=== PATIENT | female | born 1995 ===

== ENCOUNTER 2021-01-20 10:48 | Inpatient (IN) | payer BC, OTHER ==
[~2021-01-20] VITALS: Ht 170.2 cm; Wt 79.5 kg
[2021-01-20] MEDS ORDERED: PRENATAL MVI (19:26)
[2021-01-20] MEDS ORDERED: NATURAL IRON65 MG (19:27)
[2021-01-20 19:35] VITALS: BP 136/65; PULSE 75; TEMP 98.4
--- NOTE | 2021-01-20 19:50 | NUR ---
1919 G1 at 39.1 weeks gestation to LDR5 with for induction of labor. Patient changed into gown, wedged left in bed. Patient reports good movement, denies CTX, LOF, or vaginal bleeding. EFMs explained and applied. FHR 130 bpm. At 193 and 194, late FHR deceleration noted. FHR down to 125 bpm lasting 2-3 minutes before a gradual, spontaneous return to baseline of 130 bpm. Patient repositioned to left side. 1944 INT placed in left hand with labs drawn from site. LR fluid bolus infusing.
[2021-01-20 20:05] VITALS: BP 129/73; PULSE 75
--- NOTE | 2021-01-20 20:05 | NUR ---
FHR category 1. SVE closed/thick/high, posterior. Cytotec placed - see emar.
[2021-01-20 20:28] LABS: BASO % 0.3 % (0.0-2.0); EOS % 0.6 % (0-4.0); GRAN # 5.4 (1.4-6.5); GRAN % 76.9 % (42.2-75.2); HEMOGLOBIN 11.4 g/dl (12.5-16.0); LYMPH % 14.7 % (20.0-51.0); MEAN CELL VOLUME 92 fl (80.0-100.0); MEAN CORPUSCULAR HEMOGLOBIN 31 pg (27.0-31.0); MEAN CORPUSCULAR HGB CONC 34 g/dl (33.0-37.0); MEAN PLATELET VOLUME 11.3 fl (7.4-10.4); MONO # 0.5 (0.1-0.6); MONO % 6.8 % (1.7-9.3); PLATELET COUNT 169 K/mm3 (130-400); RED BLOOD COUNT 3.69 M/mm3 (4.10-5.30); REDCELL DISTRIBUTION WIDTH-CV 14.7 % (11.5-14.5)
[2021-01-20 20:30] VITALS: BP 139/84; PULSE 64
[2021-01-20 20:33] LABS: HEMATOCRIT 33.9 % (37.0-47.0)
[2021-01-20 21:00] VITALS: BP 139/77; PULSE 64
[2021-01-20 22:00] VITALS: BP 136/71; PULSE 67
[2021-01-20 23:00] VITALS: BP 134/78; PULSE 75
[2021-01-21] VITALS (70 sets, daily range): BP systolic 102–142; BP diastolic 52–102; PULSE 61–127; TEMP 97.9–98.7
--- NOTE | 2021-01-21 | NUR ---
CTX q1.5-3 minutes per toco, patient reports feeling cramping with ctx.
--- NOTE | 2021-01-21 02:15 | NUR ---
Pitocin started at 2mu per orders and protocol.
--- NOTE | 2021-01-21 05:30 | NUR ---
Patient continues to rest/sleep through contractions. When awake reports feeling tightening but denies pain.
--- NOTE | 2021-01-21 06:53 | NUR ---
Up to bathroom.
--- NOTE | 2021-01-21 07:00 | NUR ---
Upon return from bathroom, positioned in left lateral. Patient reports she is feeling some contractions more than tightening, when she does feel strong contractions, she feels it in lower uterine portion.
--- NOTE | 2021-01-21 07:45 | NUR ---
Rate of pitocin decreased to half the rate to 10mU/min. Note patient continues to be in dysfunctional uterine contraction pattern. Difficult to tell if much is uterine irritability, or all are actually contractions. Patient reports she is not feeling all of them. Resting/sleeping through them. LR bolus begun in attempt to regulate contraction pattern.
--- NOTE | 2021-01-21 09:00 | NUR ---
Late deceleration noted. Upon entrance to room patient lying supine. Repositioned to left lateral.
--- NOTE | 2021-01-21 09:16 | NUR ---
here. Performs bedside US, verifying vertex presentation. 0923-up to bathroom prior to SVE/AROM, as discussed with patient. Agreeable to plan of care.
--- NOTE | 2021-01-21 09:30 | NUR ---
here for repeat SVE/AROM. AROM @ 0970, clear fluid noted. SVE /-[id number]: Pit decreased to 8mU/min per verbal order.
--- NOTE | 2021-01-21 09:59 | NUR ---
Requests epidural @ this time. MATTHEW Ibarra, notified, in-house. LR bolus begun.
--- NOTE | 2021-01-21 16:40 | NUR ---
Rand catheter removed by this job specification writer. First push attempt with instruction.
--- NOTE | 2021-01-21 16:57 | NUR ---
in to evaluate beginning pushing efforts. Reviews strip. Aware of repetetive late decelerations.
--- NOTE | 2021-01-21 17:43 | NUR ---
in. Gives verbal order to breakdown bed for delivery.
--- NOTE | 2021-01-21 18:05 | NUR ---
Pt spouse begins asking about other options. Explains his head is about to explode, as he is fearful for his , as his mother "almost giving to me." discusses options to include episiotomy, forceps assist, vacuum assist, section. Verbalize understanding. Patient requests assist with pushing efforts. Dr. Harmon gives verbal order for [place] forceps assist.
--- NOTE | 2021-01-21 18:15 | NUR ---
places Liukart forceps @ this time. 1815: Liukart forceps assisted delivery of head by . 181: Shoulders deliver rapidly without complication less than 10 seconds after head. Cord gases obtained per verbal order. Infant to mother's abdomen, cord doubly clamped, cut by father of baby with instruction from . passed off to nursery nurse to closely assess infant. 1821: Spontaneous vaginal dellivery of placenta by . Pit bolus begun immediately following. works to repair 3rd degree perineal laceration with 3-[address]1.
--- NOTE | 2021-01-21 22:50 | NUR ---
2250-PT ASSISTED TO BR AND UNABLE TO VOID. PERICARE DONE AND PT TO ROOM IN WHEELCHAIR. 2314-PERINEUM AND LABIA SWOLLEN. POWELL CATHETER PLACED AND 900ML PINK TINGED URINE QUICKLY DRAINED FROM BLADDER. PERICARE DONE AND ICEPACK AND TUCKS PLACED ON PERINEUM. POWELL CATHETER LEFT IN PLACE TO DRAIN DUE TO SWOLLEN PERINEUM AND INABILITY TO VOID.
[2021-01-22 01:35] VITALS: BP 111/57; PULSE 87; TEMP 97.7
[2021-01-22 07:00] VITALS: BP 120/57; PULSE 76; TEMP 97.5
[2021-01-22 07:55] LABS: HEMATOCRIT 29.8 % (37.0-47.0)
[2021-01-22] MEDS ORDERED: IBU600 MG PO (08:39)
[2021-01-22] MEDS ORDERED: PERCOCET 325 MG1 TA2 PO (08:39)
[2021-01-22 14:30] VITALS: BP 136/64; PULSE 96; TEMP 98.2
[2021-01-22 19:20] VITALS: BP 137/74; PULSE 79; TEMP 98.1
[2021-01-23 07:00] VITALS: BP 136/63; PULSE 87; TEMP 98
== END 2021-01-23 15:15 | disposition home or self-care (01) | DRG 768 ==
LOC: OB 10:48 → LDR 19:01 → OB 01-21 23:00
PROVIDERS: ADMIT Obstetrics & Gynecology
PROC: 10D07Z4 Extraction of Products of Conception, Mid Forceps, Via Natural or Artificial Opening (ICD-10-PCS; principal; 2021-01-21)
PROC: 0DQR0ZZ Repair Anal Sphincter, Open Approach (ICD-10-PCS; 2021-01-21)
PROC: 3E0P7VZ Introduction of Hormone into Female Reproductive, Via Natural or Artificial Opening (ICD-10-PCS; 2021-01-21)
PROC: 10907ZC Drainage of Amniotic Fluid, Therapeutic from Products of Conception, Via Natural or Artificial Opening (ICD-10-PCS; 2021-01-21)
DX: O36.63X0 Maternal care for excessive fetal growth, third trimester, not applicable or unspecified (principal); Z37.0 Single live birth; O71.4 Obstetric high vaginal laceration alone; Z3A.39 39 weeks gestation of pregnancy; D64.9 Anemia, unspecified; O99.02 Anemia complicating childbirth
CPT/HCPCS: J2590; J7120